=== PATIENT | male | born 1960 | race Caucasian/White ===

== ENCOUNTER → 2017-12-26 | Outpatient (CLI) | payer SELFPAY ==
--- NOTE | 2017-12-26 22:21 | CTL ---
EXAMINATION TYPE: CT Low Dose Lung DATE OF EXAM ORDERED: 12/26/2017 HISTORY: 57-year-old male personal history of tobacco use. Lung cancer screening CT DLP: [address] CTDI: 3.33 mGy Automated exposure control for dose reduction was used. SCREENING VISIT: Baseline COMPARISON: None TECHNIQUE: Low dose computed tomography scan was performed through the chest at 1 mm thick sections and reconstructed images in the coronal/sagittal plane at 1 mm thick sections. Coronal MIP reconstructions performed. CT DIAGNOSTIC QUALITY: Satisfactory FINDINGS: There is rounded prominence to the left lobe of the thyroid gland, possibly underlying thyroid nodule measuring up to 2.2 cm. This can be further evaluated with dedicated thyroid ultrasound. Heart is normal size without pericardial effusion. The aorta is normal-caliber convention arch vessel branching anatomy. Scattered nonenlarged mediastinal lymph nodes are present measuring up to 8 mm in the AP window and 9 mm precarinal region. Punctate calcification is present in the precarinal lymph node possibly relating to prior granulomatous disease. No thoracic lymphadenopathy identified by noncontrast technique. There is mild diffuse bronchial wall thickening and mild emphysematous change. - Tiny 2 mm pulmonary nodule right upper lobe axial image 79. - Additional tiny 2 mm pulmonary nodule peripherally in the right upper lobe, for example, axial images 95, 97, 101, 105, 142, 144, 145, and etc. - These are too numerous to count and are present bilaterally. - 4 mm lateral right midlung pulmonary nodule axial image 167. No consolidation or pleural effusion. Visualized upper abdomen shows no gross abnormality. Bones: No osseous destructive process. IMPRESSION: 1. LungRADS 2 (benign appearance, <1% chance of malignancy) - a 4 mm right midlung pulmonary nodule and too numerous to count tiny 2 mm pulmonary nodules bilaterally. Possibly related to prior granulomatous disease. 2. COPD with mild emphysema. 3. Rounded prominence to the left lobe of the thyroid gland, possible 2.2 cm nodule. RECOMMENDATION: 1. Continue with annual lung cancer screening low dose CT. 2. Smoking cessation. 3. Thyroid ultrasound. FOLLOW UP CT CHEST RECOMMENDATION: [address] LUNG RAD: Lung-Rad 2 Benign Appearance or Behavior MTDD
== END | disposition home or self-care (01) ==
LOC: RADCTMAIN 17:50
PROVIDERS: ATTEND Internal Medicine Critical Care Medicine
DX: Z12.2 Encounter for screening for malignant neoplasm of respiratory organs (principal); R91.8 Other nonspecific abnormal finding of lung field; J44.9 Chronic obstructive pulmonary disease, unspecified; Z87.891 Personal history of nicotine dependence

== ENCOUNTER → 2018-02-20 | Outpatient (CLI) | payer SELFPAY ==
--- NOTE | 2018-02-21 08:39 | US ---
EXAMINATION TYPE: US thyroid st tissue head/neck DATE OF EXAM: 02/20/2018 COMPARISON: CT 12/26/2017 CLINICAL HISTORY: E04.1 THYROID NODULE. GLAND SIZE: Right Lobe: 4.9 x 2.5 x 1.8 cm Overall Parenchyma: homogenous Left Lobe: 4.9 x 1.9 x 2.2 cm Overall Parenchyma: homogeneous Isthmus Thickness: 0.3 cm NODULES RIGHT: # of nodules measured on right: 1 1.3 X 0.8 x 1.2 cm hypoechoic mixed nodule at the mid pole with well-defined margins; . This nodule is wider than tall and shows peripheral vascularity. Prior size: No previous LEFT: # of nodules measured on left: 1. 1.8 X 1.8 x 2.4 cm hypoechoic mixed nodule at the lower pole with well-defined margins; . This nodule is wider than tall and shows intranodular vascularity. Prior size: No previous ISTHMUS: # of nodules measured in the isthmus: 0 Bilateral neck scanned, no evidence of lymphadenopathy. IMPRESSION: Bilateral thyroid nodules greater than 1 cm. Consider correlation with nuclear medicine thyroid scan. Biopsy could be considered.
== END | disposition home or self-care (01) ==
LOC: RADUSWWP 15:54
PROVIDERS: ATTEND Internal Medicine Critical Care Medicine
DX: E04.2 Nontoxic multinodular goiter (principal)
CPT/HCPCS: 76536

== ENCOUNTER 2018-05-17 11:45 | Day surgery (SDC) | payer BC ==
[2018-05-17 12:38] VITALS: RESP 16; TEMP 97.7
[2018-05-17 13:23] VITALS: BP 131/85; PULSE 68
--- NOTE | 2018-05-17 13:38 | US ---
ULTRASOUND GUIDED FNA THYROID BIOPSY: CLINICAL HISTORY: 1.3 cm right thyroid nodule and 2.4 cm left thyroid nodule FINDINGS: The procedure was explained to the patient. The risks, complications, benefits and alternatives were discussed and any questions were answered. Informed consent was obtained. Patient was placed supin e on the ultrasound table and prepped and draped in the usual sterile fashion. Utilizing a 25 gauge needle, five passes were made into the right and left thyroid nodule requested. Patient was stable throughout the procedure. Pathology is pending. All elements of maximal barrier technique were utilized. IMPRESSION: 1. Successful ultrasound guided FNA thyroid biopsy.
== END 2018-05-17 13:45 | disposition home or self-care (01) ==
LOC: RADPROMAIN 11:45
PROVIDERS: ATTEND Family Medicine
DX: E04.1 Nontoxic single thyroid nodule (principal)
CPT/HCPCS: 10022; 76942; 88173; 88305

== ENCOUNTER → 2019-02-19 | Outpatient (CLI) | payer SELFPAY ==
--- NOTE | 2019-02-21 08:15 | CTL ---
EXAMINATION TYPE: CT Low Dose Lung DATE OF EXAM ORDERED: 02/19/2019 COMPARISON: HISTORY: . Low Dose CT Lung Screening CT DLP: 140.[address] CTDI: 3.9 mGy IV CONTRAST USED: None. SCREENING VISIT: First visit COMPARISON: None. TECHNIQUE: Low dose computed tomography scan was performed through the chest at 1 millimeter thick se ctions and reconstructed images in the coronal plane at [address] DIAGNOSTIC QUALITY: Satisfactory FINDINGS: LUNG NODULES: Right lun mm pulmonary nodule right lower lobe adjacent to the fissure image 150. N odule is stable. All scattered 2 mm nodules identified bilaterally but all remain stable as well LUNGS: COPD: Severity: There is mild diffuse bronchial wall thickening and mild emphysematous change. Lymph nodes: None Other findings: None RIGHT PLEURAL SPACE: Effusion: None Calcification: None Thickening: None Pneumothorax: None LEFT PLEURAL SPACE: Effusion: None Calcification: None Thickening: None Pneumothorax: None HEART: Heart Size: Mildly enlarged Coronary calcification: Mild Pericardial effusion: None OTHER FINDINGS: Upper abdomen: No significant abnormality Bony thorax: Degenerative changes Supraclavicular region: No significant abnormalityOther: No significant abnormalityI IMPRESSION: 1. Stable less scattered benign nodules with a less than 1% chance of malignancy. 2. COPD. FOLLOW UP CT CHEST RECOMMENDATION: Follow-up screening in one year. Smoking cessation recommended. CT LUNG RAD: LUNG RAD CATEGORY 2 B9
== END | disposition home or self-care (01) ==
LOC: RADCTMAIN 15:30
PROVIDERS: ATTEND Internal Medicine Critical Care Medicine
DX: J44.9 Chronic obstructive pulmonary disease, unspecified (principal); R91.8 Other nonspecific abnormal finding of lung field; Z87.891 Personal history of nicotine dependence

== ENCOUNTER → 2020-06-09 | Day surgery (SDC) | payer BC ==
[2020-06-04 16:01] VITALS: BMI 28.0
[~2020-06-09] MED LIST: LACTATED RINGERS 1,000 ML IV SCH; LIDOCAINE 1% (10MG/ML) FOR IV START INTRADERMA ONE; PROPOFOL 10 MG/ML 20 ML VIAL IV ONE
[2020-06-09 08:19] VITALS: TEMP 96.7
[2020-06-09 08:30] LABS: Glucose,Whole Blood 116 mg/dL (75-99)
--- NOTE | 2020-06-09 09:23 | P.PCN ---
Date of Procedure: 06/09/20 Procedure(s) Performed: BRIEF HISTORY: Patient is a 59-year-old pleasant white male scheduled for an elective colonoscopy as a part of screening for colorectal neoplasia. PROCEDURE PERFORMED: Colonoscopy with snare polypectomy. PREOPERATIVE DIAGNOSIS: Screening for colon cancer. IV sedation per Anesthesia. PROCEDURE: After informed consent was obtained, the patient, was brought into the endoscopy unit. IV sedation was administered by Anesthesia under continuous monitoring. Digital rectal examination was normal. Initially the Olympus CF-160 flexible video colonoscope was then inserted in the rectum, gradually advanced into the cecum without any difficulty. Careful examination was performed as the scope was gradually being withdrawn. Ileocecal valve and the appendiceal orifice were visualized and appeared normal. Prep was excellent. Mucosa of the cecum, ascending colon, transverse colon, descending colon, sigmoid colon, and rectum appeared normal. In the mid rectum there was a 1 cm polyp that was removed by snare polypectomy. Retroflexion was performed in the rectum and no lesions were seen. The patient tolerated the procedure well. IMPRESSION: 1 cm mid rectal polyp status post polypectomy Rest of the colon appeared normal RECOMMENDATIONS: Findings of this examination were discussed with the patient as well as his family. He was advised to follow with the biopsy results. If the biopsy reveals adenoma he can have a repeat colonoscopy in 3-5.
[2020-06-09 09:40] VITALS: BP 141/83; PULSE 66; RESP 18
== END ==
LOC: ORWHC2ENDO 08:07
PROVIDERS: ATTEND Internal Medicine Gastroenterology
DX: Z12.11 Encounter for screening for malignant neoplasm of colon (principal); D12.8 Benign neoplasm of rectum
CPT/HCPCS: 88305; 45385; J2704

== ENCOUNTER 2021-02-27 13:05 | Observation (INO) | payer BC ==
--- NOTE | 2021-02-27 13:34 | ED ---
General Adult HPI - General Chief complaint: Eye Problems Stated complaint: Double vision Time Seen by Provider: 02/27/21 13:20 Source: patient, RN notes reviewed Mode of arrival: wheelchair Limitations: no limitations - History of Present Illness Initial comments: Patient is a pleasant 60-year-old male presenting to the emergency Department with complaints of double vision. Patient had minimal nonspecific blurred vision Sunday. Patient woke up yesterday with double vision that has been persistent since this time. Double vision is only present when patient uses both eyes. This resolves when using only one eye. Patient states there is minimal discomfort behind his left eye. No confusion or speech problems. No extremity weakness. No history of similar symptoms previously. - Related Data Home Medications Medication Instructions Recorded Confirmed No Known Home Medications 05/08/18 02/27/21 Allergies Allergy/AdvReac Type Severity Reaction Status Date / Time No Known Allergies Allergy Verified 02/27/21 14:53 Review of Systems ROS Statement: Those systems with pertinent positive or pertinent negative responses have been documented in the HPI. ROS Other: All systems not noted in ROS Statement are negative. Constitutional: Denies: fever Eyes: Reports: as per HPI, vision change. Denies: eye pain ENT: Denies: ear pain Respiratory: Denies: cough Cardiovascular: Denies: palpitations Endocrine: Denies: fatigue Gastrointestinal: Denies: abdominal pain Genitourinary: Denies: dysuria Musculoskeletal: Denies: back pain Skin: Denies: rash Neurological: Reports: as per HPI. Denies: weakness, numbness, paresthesias, co nfusion, abnormal gait, vertigo Past Medical History Past Medical History: Thyroid Disorder History of Any Multi-Drug Resistant Organisms: None Reported Past Surgical History: Orthopedic Surgery Past Anesthesia/Blood Transfusion Reactions: No Reported Reaction Past Psychological History: No Psychological Hx Reported Smoking Status: Former smoker Past Alcohol Use History: Occasional Past Drug Use History: None Reported - Past Family History Father History Unknown: Yes Family Medical History: Cancer General Exam Limitations: no limitations General appearance: alert, in no apparent distress Head exam: Present: normocephalic, other (No tenderness of the temporal artery) Eye exam: Present: normal appearance, PERRL, EOMI, nystagmus Expanded Eyelids: Normal Inspection: Bilateral Pupils: Regular, Round: Bilateral Sclera/Conjunctival: Normal Inspection: Bilateral Posterior chamber: Normal Inspection: Bilateral ENT exam: Present: normal oropharynx Neck exam: Present: normal inspection Respiratory exam: Present: normal lung sounds bilaterally Cardiovascular Exam: Present: regular rate, normal rhythm GI/Abdominal exam: Present: soft. Absent: tenderness Extremities exam: Present: normal inspection Neurological exam: Present: alert, oriented X3, CN II-XII intact. Absent: motor sensory deficit Expanded Neurological exam: Present: protecting the airway Patient oriented to: Present: person, place, time Speech: Present: fluid speech Cranial nerves: EOM's Intact: Normal, Facial Sensation: Normal Sensory exam: Upper Extremity Light Touch: Normal, Lower Extremity Light Touch: Normal Motor strength exam: RUE: 5, LUE: 5, RLE: 5, LLE: 5 Eye Response: (4) open spontaneously Motor Response: (6) obeys commands Verbal Response: (5) oriented Psychiatric exam: Present: normal affect, normal mood Skin exam: Present: normal color Course Vital Signs 02/27/21 02/27/21 02/27/21 13:14 13:53 15:00 Temperature 98 F Pulse Rate 79 79 78 Respiratory 17 16 16 Rate Blood Pressure 148/85 148/86 152/83 O2 Sat by Pulse 99 98 98 Oximetry EKG Findings - EKG Comments: EKG Findings:: Normal sinus rhythm with a rate of 74. W[place] 148. QRS 92. QT 32. QTC 424. Normal axis. Normal QRS. No acute ST change. Medical Decision Making - Medical Decision Making Patient reevaluated and unchanged. Symptoms felt to likely be more related to mild CVA rather than ophthalmology. Nevertheless discussed case with Dr. Fuller who will consult in the hospital. Case also discussed with Dr. Rodrigues, who will admit her brain for Dr. Clayton. Neurology will also be consulted. - Lab Data Result diagrams: 02/27/21 13:43 02/27/21 13:43 Lab Results 02/27/21 02/27/21 02/27/21 Range/Units 13:43 13:43 13:43 WBC 4.7 (3.8-10.6) k/uL RBC 5.21 (4.30-5.90) m/uL Hgb 15.8 (13.0-17.5) gm/dL Hct 44.0 (39.0-53.0) % MCV 84.5 (80.0-100.0) fL MCH 30.4 (25.0-35.0) pg MCHC 35.9 (31.0-37.0) g/dL RDW 12.9 (11.5-15.5) % Plt Count 167 (150-450) k/uL MPV 9.0 Neutrophils % 72 % Lymphocytes % 19 % Monocytes % 6 % Eosinophils % 1 % Basophils % 1 % Neutrophils # 3.4 (1.3-7.7) k/uL Lymphocytes # 0.9 L (1.0-4.8) k/uL Monocytes # 0.3 (0-1.0) k/uL Eosinophils # 0.0 (0-0.7) k/uL Basophils # 0.0 (0-0.2) k/uL ESR 2 (0-15) mm/hr PT 10.3 (9.0-12.0) sec INR 1.0 (<1.2) APTT 24.4 (22.0-30.0) sec Sodium 139 (137-145) mmol/L Potassium 3.9 (3.5-5.1) mmol/L Chloride 106 (98-107) mmol/L Carbon Dioxide 25 (22-30) mmol/L Anion Gap 8 mmol/L BUN 14 (9-20) mg/dL Creatinine 0.90 (0.66-1.25) mg/dL Est GFR (CKD-EPI)AfAm >90 (>60 ml/min/1.73 sqM) Est GFR (CKD-EPI)NonAf >90 (>60 ml/min/1.73 sqM) Glucose 125 H (74-99) mg/dL Calcium 9.7 (8.4-10.2) mg/dL Total Bilirubin 0.7 (0.2-1.3) mg/dL AST 25 (17-59) U/L ALT 17 (4-49) U/L Alkaline Phosphatase 66 (38-126) U/L Total Protein 7.1 (6.3-8.2) g/dL Albumin 4.5 (3.5-5.0) g/dL - Radiology Data Radiology results: report reviewed (Computed tomography scan of the brain as well as CTA does not reveal acute abnormality.) Disposition Clinical Impression: Diplopia Disposition: ADMITTED IP TO THIS HOSP Is patient prescribed a controlled substance at d/c from ED?: No Referrals: Trevon Clayton MD [Primary Care Provider] - 1-2 days Decision Time: 15:41
[2021-02-27 14:00] LABS: Basophils % (A) 1 %; Eosinophils % (A) 1 %; HGB 15.8 gm/dL (13.0-17.5); Lymphocytes # (A) 0.9 k/uL (1.0-4.8); Lymphocytes % (A) 19 %; MCH 30.4 pg (25.0-35.0); MCHC 35.9 g/dL (31.0-37.0); MCV 84.5 fL (80.0-100.0); Monocytes # (A) 0.3 k/uL (0-1.0); Monocytes % (A) 6 %; Neutrophils # (A) 3.4 k/uL (1.3-7.7); Neutrophils % (A) 72 %; Platelet Count 167 k/uL (150-450); RBC 5.21 m/uL (4.30-5.90); RDW 12.9 % (11.5-15.5); WBC 4.7 k/uL (3.8-10.6)
[2021-02-27 14:12] LABS: ALT 17 U/L (4-49); AST 25 U/L (17-59); African American GFR (CKD) >90 (>60 ml/min/1.73 sqM); Albumin 4.5 g/dL (3.5-5.0); Alkaline Phosphatase 66 U/L (38-126); Anion Gap 8 mmol/L; Blood Urea Nitrogen 14 mg/dL (9-20); Calcium 9.7 mg/dL (8.4-10.2); Carbon Dioxide 25 mmol/L (22-30); Chloride 106 mmol/L (98-107); Glucose 125 mg/dL (74-99); Non-African American GFR(CKD) >90 (>60 ml/min/1.73 sqM); Potassium 3.9 mmol/L (3.5-5.1); Sodium 139 mmol/L (137-145); Total Bilirubin 0.7 mg/dL (0.2-1.3); Total Protein 7.1 g/dL (6.3-8.2)
--- NOTE | 2021-02-27 14:12 | XR ---
EXAMINATION TYPE: XR chest 2V DATE OF EXAM: 02/27/2021 COMPARISON: NONE HISTORY: Altered mental status. TECHNIQUE: 2 views FINDINGS: There is no heart failure nor confluent pneumonic infiltrate. Costophrenic angles are clear . There are no hilar masses. Bony thorax is intact. Pulmonary vascularity is normal. There are chest leads. Heart size is normal. IMPRESSION: No active cardiopulmonary disease. Normal heart.
[2021-02-27 14:15] LABS: Partial Thromboplastin Time 24.4 sec (22.0-30.0); Prothrombin Time 10.3 sec (9.0-12.0)
--- NOTE | 2021-02-27 14:52 | CT ---
EXAMINATION TYPE: CT brain wo con DATE OF EXAM: 02/27/2021 COMPARISON: None HISTORY: blurry vision CT DLP: 1038 mGycm Automated exposure control for dose reduction was used. Ventricles have normal size. There is no mass effect nor midline shift. There is no sign of intracran ial hemorrhage. Calvarium is intact. Skull base is intact. There is normal aeration of the mastoid si nuses. IMPRESSION: Negative unenhanced head CT scan.
--- NOTE | 2021-02-27 15:01 | CT ---
EXAMINATION TYPE: CT angio head neck DATE OF EXAM: 02/27/2021 COMPARISON: None HISTORY: blurry vision CT DLP: 623.9 mGycm Automated exposure control for dose reduction was used. CONTRAST: Performed with IV Contrast, patient injected with 65 mL of Isovue 370. Images obtained from the aortic arch to the vertex of the brain with IV contrast. There are 3-D post processed images. There is normal branching pattern of the great vessels on the aortic arch. There is bilateral arteria l flow in the subclavian arteries. There is arterial flow in the common internal and external carotid arteries bilaterally. There is wide patency of the carotid artery bifurcations. There is arterial fl ow in both vertebral arteries. There is no evidence of carotid or vertebral artery aneurysm or dissec tion. There is arterial flow in the vertebrobasilar artery system. There is arterial flow in the anterior middle and posterior cerebral arteries. There is no mass effec t. I see no evidence of intracranial aneurysm or neovascularity. There is normal enhancement of the v enous sinuses. I see no intracranial arterial stenosis. IMPRESSION: Negative CT angiogram of the neck. Negative CT angiogram of the brain.
[2021-02-27 15:19] LABS: Erythrocyte Sedimentation Rate 2 mm/hr (0-15)
[2021-02-27] MEDS ORDERED: ASPIRIN 325 MG TAB PO STA (15:42)
[2021-02-27] MEDS ORDERED: NALOXONE 0.4 MG/ML 1 ML VIAL IV PRN (16:33)
[2021-02-27] MEDS ORDERED: ACETAMINOPHEN TAB 325 MG TAB PO PRN (16:33)
--- NOTE | 2021-02-27 17:14 | P.HPIM ---
History of Present Illness H&P Date: 02/27/21 Chief Complaint: diplopia 60-year-old man with no significant medical history presented with double vision. Patient says that his double vision started yesterday with sudden onset. Since that time he's had no resolution of symptoms. He said a couple days before the onset of his double vision and he had headaches as well as feeling of eye soreness in his left eye, and presently continues to feel little bit of soreness with eye-movement of the left eye. He denies photophobia. He denies fevers, chills, nausea, vomiting, chest pain, dyspnea, cough, palpitations, syncope, presyncope, weakness of the upper or lower extremities, numbness of extremities, dysuria, dyschezia, diarrhea, consultation, abdominal pain. Patient is afebrile, 144/75, heart rate 69, 98% on room air. Lab work is largely normal except for mildly elevated glucose at 125. Review of Systems All Systems reviewed and pertinent positives and negatives noted in HPI, all other symptoms are negative Past Medical History Past Medical History: Thyroid Disorder History of Any Multi-Drug Resistant Organisms: None Reported Past Surgical History: Orthopedic Surgery Past Anesthesia/Blood Transfusion Reactions: No Reported Reaction Past Psychological History: No Psychological Hx Reported Smoking Status: Former smoker Past Alcohol Use History: Occasional Additional Past Alcohol Use History / Comment(s): quit smoking years 25 yrs ago Past Drug Use History: None Reported - Past Family History Father History Unknown: Yes Family Medical History: Cancer Medications and Allergies Home Medications Medication Instructions Recorded Confirmed Type No Known Home Medications 05/08/18 02/27/21 History Allergies Allergy/AdvReac Type Severity Reaction Status Date / Time No Known Allergies Allergy Verified 02/27/21 14:53 Physical Exam Osteopathic Statement: *. No significant issues noted on an osteopathic structural exam other than those noted in the History and Physical/Consult. Vitals: Vital Signs Temp Pulse Pulse Resp BP BP Pulse Ox 02/27/21 17:01 98 02/27/21 16:45 98.3 F 69 17 144/75 98 02/27/21 15:00 78 16 152/83 98 02/27/21 13:53 79 16 148/86 98 02/27/21 13:14 98 F 79 17 148/85 99 Intake and Output 02/27/21 02/27/21 02/27/21 06:59 14:59 22:59 Other: Weight 95.254 kg 95.254 kg Gen: awake, alert HEENT: normocephalic, atraumatic, good hearing acuity, moist mucous membranes Resp: good air exchange, breathing comfortably with no accessory muscle use CVS: good distal perfusion x 4, GI: soft, NTTP, ND : no SPT, no CVAT, estrella catheter not present MSK: no pitting edema, no clubbing Neuro: No motor weakness, no sensory weakness, cranial nerves II through XII are intact Psych: cooperative, euthymic mood Results CBC & Chem 7: 02/27/21 13:43 02/27/21 13:43 Labs: Abnormal Lab Results - Last 24 Hours (Table) 02/27/21 02/27/21 Range/Units 13:43 13:43 Lymphocytes # 0.9 L (1.0-4.8) k/uL Glucose 125 H (74-99) mg/dL Thrombosis Risk Factor Assmnt - Choose All That Apply Any of the Below Risk Factors Present?: No Assessment and Plan Assessment: Diplopia -Admit to observation, telemetry -MRI of the brain with and without contrast to rule out stroke as well as multiple sclerosis -Neurology consult -Ophthalmology consult -Aspirin daily -Statin -A1c, lipid panel, TSH -Echo -Carotid Doppler Overweight -Diet and exercise counseling -Outpatient follow-up with PCP Patient is a full code DVT prophylaxis is early ambulation
--- NOTE | 2021-02-27 17:25 | US ---
EXAMINATION TYPE: US carotid duplex BILAT DATE OF EXAM: 02/27/2021 COMPARISON: CTA head/neck 02/27/2021 CLINICAL HISTORY: CVA. EXAM MEASUREMENTS: RIGHT: Peak Systolic Velocity (PSV) cm/sec ----- Right CCA: 125.0 ----- Right ICA: 104.0 ----- Right ECA: 121.0 ICA/CCA ratio: 0.83 RIGHT: End Diastole cm/sec ----- Right CCA: 25.3 ----- Right ICA: 20.8 ----- Right ECA: 14.3 LEFT: Peak Systolic Velocity (PSV) cm/sec ----- Left CCA: 114.0 ----- Left ICA: 92.2 ----- Left ECA: 83.8 ICA/CCA ratio: 0.81 LEFT: End Diastole cm/sec ----- Left CCA: 22.7 ----- Left ICA: 29.2 ----- Left ECA: 7.8 VERTEBRALS (direction of flow): Right Vertebral: Antegrade Left Vertebral: Antegrade Rhythm: Normal No significant stenosis seen. IMPRESSION: There is antegrade flow in the vertebral arteries. The images and measurements suggest close to 0% st enosis in both internal carotid artery. NASCET criteria was used in interpretation of this exam? Criteria for Assigning % of Stenosis / Diameter reduction (Estimation based on the indirect measurements of the internal carotid artery velocities (ICA PSV). 1. Normal (no stenosis)=ICA PSV < 125 cm/s: ratio < 2.0: ICA EDV<40 cm/s. 2. Less than 50% stenosis=ICA PSV < 125 cm/s: ratio < 2.0: ICA EDV<40 cm/s. 3. 50 to 69% stenosis=ICA PSV of 125 to 230 cm/s: ration 2.0 ? 4.0: ICA EDV 40-100 cm/s. 4. Greater than 70% stenosis to near occlusion= ICA PSV > 230 cm/s: ratio > 4.0: ICA EDV > 100 cm/s. 5. Near occlusion= ICA PSV velocities may be low or undetectable: variable ratio and ICA EDV. 6. Total occlusion=unable to detect flow.
[2021-02-27] MEDS: SODIUM CHLORIDE 0.9% 1,000 ML IV SCH (17:41)
[2021-02-27] MEDS: ATORVASTATIN 40 MG TAB PO SCH (20:15)
[2021-02-27 20:25] LABS: Glucose,Whole Blood 143 mg/dL (75-99)
[2021-02-28] MEDS: SODIUM CHLORIDE 0.9% 1,000 ML IV SCH ×3 (02:06→21:32)
[2021-02-28 07:32] LABS: Glucose,Whole Blood 118 mg/dL (75-99)
[2021-02-28] MEDS: ASPIRIN 81 MG PO SCH (07:42)
[2021-02-28] MEDS ORDERED: ASPIRIN 325 MG TAB PO SCH (09:00)
--- NOTE | 2021-02-28 11:35 | P.CNNES ---
History of Present Illness Consult date: 02/28/21 Requesting physician: Juan Daniel Barton Reason for Consult: diplopia, concern for CVA History of Present Illness: This is a 60-year-old gentleman who presented to our emergency department on 02/27/2021 for diplopia that started the day prior to presentation and was sudden in onset. The patient stated he had diplopia of both eyes and he feels it is side to side and it started Sunday upon waking-up around 6am. Last normal was Sunday around 9:30pm. He denies any blurry vision associate with that. He denies any drooping of his eyes. He said that the for last 5 days prior to diplopia he was having mild the pressure behind his eyes intermittently but denied any photophobia, phonophobia, nausea or vomiting. He denies any ringing in the ears or hearing loss. He denies any weakness, numbness, difficulty getting his words out or swallowing. He denies any trauma to the head that. Denies any fever recently. Denies any recent travels. Currently he does not have any headache. He denies any history of stroke or TIA or multiple sclerosis in the past. He said that on 02/16/2021 and he received a second dose of Pfizer. He is not on any home scheduled medication. He has a remote history of tobacco use and stopped 20 years ago and he thinks he smoked pack a day for 15 years. He socially drinks alcohol. He denies any illicit drug use. There is no family history of multiple sclerosis. Some of the workup in the hospital consisted of: Initial vital signs: Blood pressure of 148/85, heart rate is 79, respiratory of 17, temperature of 98 the oral and pulse ox of 99% room air. CBC with differential seems unremarkable. Initial chemistry panel is glucose of 125 which is slightly elevated but not remarkable otherwise the rest of chemistry panel is unremarkable. Initial coagulation study are normal. CT of the head is reported as negative unenhanced head CT scan. CT angiography of the head and neck was reported as negative. Carotid duplex is reported as there is antegrade flow in the vertebral arteries. Images and measurements suggest close to 0% stenosis in both internal carotid arteries. EKG is reported as normal sinus rhythm. Normal EKG. Review of Systems Review of system: The 12 point system was reviewed and apparent positive and negative per HPI. Past Medical History Past Medical History: Thyroid Disorder History of Any Multi-Drug Resistant Organisms: None Reported Past Surgical History: Orthopedic Surgery Past Anesthesia/Blood Transfusion Reactions: No Reported Reaction Past Psychological History: No Psychological Hx Reported Smoking Status: Former smoker Past Alcohol Use History: Occasional Additional Past Alcohol Use History / Comment(s): quit smoking years 25 yrs ago Past Drug Use History: None Reported - Past Family History Father History Unknown: Yes Family Medical History: Cancer Medications and Allergies Home Medications Medication Instructions Recorded Confirmed Type No Known Home Medications 05/08/18 02/27/21 History Allergies Allergy/AdvReac Type Severity Reaction Status Date / Time No Known Allergies Allergy Verified 02/27/21 14:53 Physical Examination - Vital Signs Vital Signs: Vital Signs Temp Pulse Pulse Resp BP BP BP 02/28/21 07:00 98.3 F 65 18 166/85 02/28/21 06:44 98.3 F 65 18 166/85 02/28/21 01:33 98 F 67 18 109/68 02/27/21 20:00 98.5 F 64 18 143/80 02/27/21 17:01 02/27/21 16:45 98.3 F 69 17 144/75 02/27/21 15:00 78 16 152/83 02/27/21 13:53 79 16 148/86 02/27/21 13:14 98 F 79 17 148/85 Pulse Ox 02/28/21 07:00 98 02/28/21 06:44 02/28/21 01:33 97 02/27/21 20:00 98 02/27/21 17:01 98 02/27/21 16:45 98 02/27/21 15:00 98 02/27/21 13:53 98 02/27/21 13:14 99 Intake and Output 02/27/21 02/28/21 02/28/21 22:59 06:59 14:59 Other: Voiding Method Toilet Toilet # Voids 1 2 Weight 95.254 kg GENERAL: The patient is lying in bed and is not in acute distress. CHEST: The heart rate is regular rate rhythm. No murmurs to auscultation. No carotid bruit bilaterally. LUNG: Clear to auscultation bilaterally no wheezing noted throughout. Not labored breathing. ABDOMEN/GI: Bowel sounds present in all 4 quadrants. No tenderness to palpation throughout. NEUROLOGICAL: Higher mental function: The patient is awake, alert, oriented to self, place and time. Patient is following commands. No aphasia and no neglect. Cranial nerves: Has diplopia of both eyes and resolves with closing either eyes (lateral gaze diplopia). The pupils are round, equal and reactive to light and accommodation. Visual chan are full to confrontation throughout. Visual acuity is 20/20 OU with correction. Extraocular movement, I feel there is extreme minimal to subtle movement looking to lateral gaze on left eye (lateral gaze) and patient has multiple episode of squinting left eye. There is no nystagmus noted. No ptosis of both eyes noted even after 1 minute of upward gaze deviation. Facial sensation is normal to touch throughout. The facial strength is normal throughout. Hearing is normal bilaterally to hand rub. Tongue is midline and moved [id number] without any difficulty. No dysarthria is noted. Shoulder shrug is normal bilaterally. Motor: The strength is 5 over 5 throughout. Normal tone and bulk. Cerebellum: Normal finger to nose heel to do bilaterally. Sensation: Sensation is normal to touch throughout. Reflexes (right/left): 2+ throughout. Plantars are downgoing bilaterally. Results - Laboratory Findings CBC and BMP: 02/28/21 05:14 02/28/21 05:14 Abnormal Lab Findings: Abnormal Labs 02/27/21 02/27/21 02/27/21 13:43 13:43 20:23 Lymphocytes # 0.9 L Glucose 125 H POC Glucose (mg/dL) 143 H 02/28/21 07:30 Lymphocytes # Glucose POC Glucose (mg/dL) 118 H Assessment and Plan Assessment: * Diplopia of both eyes (lateral gaze and resolved with closing either eyes). On examination there is subtle limitation on left lateral gaze (left lateral rectus, CN 6 without nystagmus. Without any other neurological deficits. I doubt stroke. Rule out multiple sclerosis. * Remote tobacco use Plan: In the ED the patient was given aspirin 325 mg once then was started on aspirin 81 mg as well as Lipitor 40 mg daily at bedtime for secondary stroke prophylaxis. MRI the brain with and without is ordered by the primary team is pending. 2-D echo, TSH, lipid panel and hemoglobin A1c is ordered by the primary team and are pending PT, OT and MILK DELIVERER are consulted. Placed the patient on every 4 hours checks On cardiac monitoring. Ophthamology team is consulted. Will defer the rest of medical management to the primary team. The plan is discussed with the patient and his nurse. Thank you for the consultation. Marc Steele MD Neuro-Hospitalist. Time with Patient: Greater than 30
[2021-02-28 12:07] LABS: Glucose,Whole Blood 133 mg/dL (75-99)
--- NOTE | 2021-02-28 12:26 | P.PN ---
Subjective Progress Note Date: 02/28/21 No new complaints today. Ongoing symptoms of diplopia. Carotid doppler negative. Neurology following, optho pending. MRI pending. Objective - Vital Signs Vital signs: Vital Signs Temp 98.3 F 02/28/21 07:00 Pulse 65 02/28/21 07:00 Resp 18 02/28/21 07:00 BP 166/85 02/28/21 07:00 Pulse Ox 96 02/28/21 11:01 Intake & Output 02/27/21 02/28/21 02/28/21 18:59 06:59 18:59 Weight 95.254 kg Other: Voiding Method Toilet # Voids 2 - Exam Gen: awake, alert HEENT: normocephalic, atraumatic, good hearing acuity, moist mucous membranes Resp: good air exchange, breathing comfortably with no accessory muscle use CVS: good distal perfusion x 4, GI: soft, NTTP, ND : no SPT, no CVAT, estrella catheter not present MSK: no pitting edema, no clubbing Neuro: No motor weakness, no sensory weakness, cranial nerves II through XII are intact Psych: cooperative, euthymic mood - Labs CBC & Chem 7: 02/27/21 13:43 02/27/21 13:43 Labs: Abnormal Lab Results - Last 24 Hours (Table) 02/27/21 02/27/21 02/27/21 Range/Units 13:43 13:43 20:23 Lymphocytes # 0.9 L (1.0-4.8) k/uL Glucose 125 H (74-99) mg/dL POC Glucose (mg/dL) 143 H (75-99) mg/dL 02/28/21 02/28/21 Range/Units 07:30 11:59 Lymphocytes # (1.0-4.8) k/uL Glucose (74-99) mg/dL POC Glucose (mg/dL) 118 H 133 H (75-99) mg/dL Assessment and Plan Assessment: Diplopia - MS versus diabetic ophthalmoplegia -Admit to observation, telemetry -MRI of the brain with and without contrast to rule out stroke as well as multip le sclerosis -Neurology consult -Ophthalmology consult -Aspirin daily -Statin -A1c, -lipid panel, TSH -Echo pending -Carotid Doppler negative for stenosis Overweight -Diet and exercise counseling -Outpatient follow-up with PCP Patient is a full code DVT prophylaxis is early ambulation
--- NOTE | 2021-02-28 14:19 | MR ---
EXAMINATION TYPE: MR brain wo/w con DATE OF EXAM: 02/28/2021 COMPARISON: CT brain from yesterday. HISTORY: CVA; acute onset neurologic deficit or blurry vision yesterday. TECHNIQUE: Multiplanar, multisequence images of the brain and brainstem is performed without and with IV contras t, utilizing 10 mL intravenous Gadavist . FINDINGS: Diffusion weighted images demonstrate no evidence of a recent infarct or other diffusion ab normality. There is no extra-axial fluid collection or significant white matter signal abnormality. The ventricular system and cisternal spaces are normal in size and appearance. The brain volume is age appropriate. Midline structures demonstrate normal morphology. The craniocervical junction appears within normal limits. Post contrast images demonstrate no abnormal enhancement. The dural venous sinuses appear pa tent. The visualized sinuses are clear and the globes are intact. IMPRESSION: No MRI evidence for recent infarct. Unremarkable study.
[2021-02-28 14:27] LABS: Basophils # (A) 0.02 X 10*3/uL (0.00-0.10); Basophils % (A) 0.4 %; Eosinophils # (A) 0.06 X 10*3/uL (0.04-0.35); Eosinophils % (A) 1.2 %; HCT 44.3 % (39.6-50.0); HGB 14.8 g/dL (13.0-17.0); Lymphocytes # (A) 1.58 X 10*3/uL (0.90-5.00); Lymphocytes % (A) 32.2 %; MCH 28.7 pg (27.0-32.0); MCHC 33.4 g/dL (32.0-37.0); Mean Platelet Volume 12.4 fL (9.5-12.2); Monocytes # (A) 0.46 X 10*3/uL (0.20-1.00); Monocytes % (A) 9.4 %; Neutrophils # (A) 2.75 X 10*3/uL (1.80-7.70); Neutrophils % (A) 56.2 %; Platelet Count 188 X 10*3/uL (140-440); RBC 5.15 X 10*6/uL (4.40-5.60); RDW 12.9 % (11.5-14.5)
[2021-02-28 15:44] LABS: Hemoglobin A1C 5.7 % (4.0-6.0)
[2021-02-28 16:27] LABS: African American GFR (CKD) 108.7 (60.0-200.0); Anion Gap 4.8 mmol/L (4.00-12.00); BUN/Creat Ratio 12.22 Ratio (12.00-20.00); Calcium 8.8 mg/dL (8.7-10.3); Carbon Dioxide 25.2 mmol/L (21.6-31.8); Chol/HDL Ratio 3.9; LDL Cholesterol,Calculated 97.2 mg/dL (0.0-131.0); Magnesium 1.9 mg/dL (1.5-2.4); Non-African American GFR(CKD) 93.8 (60.0-200.0); Potassium 4.3 mmol/L (3.5-5.5); VLDL Calculation 15.8 mg/dL (5.00-40.00)
[2021-02-28 17:27] LABS: Glucose,Whole Blood 81 mg/dL (75-99)
[2021-02-28 21:04] LABS: Glucose,Whole Blood 110 mg/dL (75-99)
[2021-02-28] MEDS: ATORVASTATIN 40 MG TAB PO SCH (21:31)
--- NOTE | 2021-02-28 22:00 | CONS ---
CONSULTATION CHIEF COMPLAINT: Diplopia. HISTORY OF PRESENT ILLNESS: The patient developed diplopia on Sunday morning. I came to the emergency room on Sunday. He developed headache last Sunday following stress. MEDICAL HISTORY: Reviewed, including diabetes. PAST SURGICAL HISTORY: No ocular surgery performed before. EYE EXAMINATION: Lids normal. Pupils are equal and reactive. Extraocular motility shows limited abduction in the left eye. Diplopia exam shows horizontal diplopia, more on the left gaze. Retina shows no disk swelling. ASSESSMENT: 1. Left sixth nerve palsy. 2. Headache. 3. Horizontal diplopia. PLAN: CT scan reviewed and was normal. MRI not back yet. Assume ischemic changes. I will see the patient in the office in 10 to 15 days. Please arrange to see Dr. Diaz in the office for further testing. MMODL / IJN: [id number] /
[2021-03-01 07:42] LABS: Glucose,Whole Blood 113 mg/dL (75-99)
[2021-03-01] MEDS: ASPIRIN 81 MG PO SCH (08:35)
[2021-03-01] MEDS ORDERED: lisinopriL 10 MG TAB PO STA (10:24)
[2021-03-01] MEDS: SODIUM CHLORIDE 0.9% 1,000 ML IV SCH (12:07)
[2021-03-01 12:20] LABS: Glucose,Whole Blood 96 mg/dL (75-99)
--- NOTE | 2021-03-01 14:00 | P.PN ---
Subjective Progress Note Date: 03/01/21 The patient is seen at bedside and states he is about the same. He continues to have diplopia of both eyes. He feels straining of left eye. Yesterday I spoke with the primary team regarding the getting MRI of the orbit and they stated they'll order it but when I came back today I personally called the primary team and dosing care the patient history and he stated that he was waiting for ophthalmology to evaluate patient. Objective - Vital Signs Vital signs: Vital Signs Temp 97.9 F 03/01/21 08:00 Pulse 58 L 03/01/21 13:06 Resp 12 03/01/21 13:06 BP 135/74 03/01/21 12:54 Pulse Ox 98 03/01/21 02:00 Intake & Output 02/28/21 03/01/21 03/01/21 18:59 06:59 18:59 Intake Total 720 Output Total 450 Balance 270 Intake: Oral 720 Output: Urine 450 Other: Voiding Method Toilet Toilet # Voids 5 2 # Bowel Movements 1 - Exam GENERAL: The patient is lying in bed and is not in acute distress. NEUROLOGICAL: Higher mental function: The patient is awake, alert, oriented to self, place and time. Patient is following commands. No aphasia and no neglect. Cranial nerves: Has diplopia of both eyes and resolves with closing either eyes (lateral gaze diplopia). The pupils are round, equal and reactive to light and accommodation. Visual chan are full to confrontation throughout. Visual acuity is 20/20 OU with correction. Extraocular movement, I feel there is extreme minimal to subtle movement looking to lateral gaze on left eye (lateral gaze) and patient has multiple episode of squinting left eye. There is no nystagmus noted. No ptosis of both eyes noted even after 1 minute of upward gaze deviation. Facial sensation is normal to touch throughout. The facial strength is normal throughout. Hearing is normal bilaterally to hand rub. Tongue is midline and moved [id number] without any difficulty. No dysarthria is noted. Shoulder shrug is normal bilaterally. Motor: The strength is 5 over 5 throughout. Normal tone and bulk. Cerebellum: Normal finger to nose heel to do bilaterally. Sensation: Sensation is normal to touch throughout. Reflexes (right/left): 2+ throughout. Plantars are downgoing bilaterally. WORK-UP: CT of the head is reported as negative unenhanced head CT scan. CT angiography of the head and neck was reported as negative. Carotid duplex is reported as there is antegrade flow in the vertebral arteries. Images and measurements suggest close to 0% stenosis in both internal carotid arteries. EKG is reported as normal sinus rhythm. Normal EKG. MRI the brain with and without is negative. Lipid panel is triglycerides 79, cholesterol 152, LDL of the 97.2, HDL of 39. TSH is 1.140 which is within normal limits. Hemoglobin A1c is 5.7 which is also within normal limits. - Labs CBC & Chem 7: 02/28/21 05:14 02/28/21 05:14 Labs: Abnormal Lab Results - Last 24 Hours (Table) 02/28/21 02/28/21 02/28/21 Range/Units 05:14 05:14 21:03 MPV 12.4 H (9.5-12.2) fL Chloride 113 H (96-109) mmol/L Glucose 114 H (70-110) mg/dL POC Glucose (mg/dL) 110 H (75-99) mg/dL HDL Cholesterol 39.0 L (40.0-60.0) mg/dL 03/01/21 Range/Units 07:24 MPV (9.5-12.2) fL Chloride (96-109) mmol/L Glucose (70-110) mg/dL POC Glucose (mg/dL) 113 H (75-99) mg/dL HDL Cholesterol (40.0-60.0) mg/dL Assessment and Plan Assessment: * Diplopia of both eyes (lateral gaze and resolved with closing either eyes). Seems partial left 6th nerve palsy (without any other neurological deficits). Unsure exact etiology. MRI Brain is negative for stroke or Demylinating disease. * Remote tobacco use Plan: * Currently the patient is on aspirin 81 mg and Lipitor 40 mg daily at bedtime. Initially was started for secondary stroke prophylaxis by the primary team and the MRI of the brain is negative for stroke. From a neurological standpoint the patient does not need to be on the aspirin will defer the statins to the primary team. * Recommend MRI of the orbits with and without. Per the primary team the patient wants to get it as outpatient if his symptoms do not improve. * I ordered Acetylcholine receptor antibody (suspicion of Myasthenia Gravis is low). * Ophthalmology team is consulted. The patient had left sixth nerve palsy. As well as horizontal diplopia. The assumed that patient has ischemic changes and waiting for MRI and for patient to follow-up as outpatient within 10-15 days. * Will defer the rest of medical management to the primary team. * Patient needs to follow-up with an [facility] and Neurologist as outpatient within 1-2 weeks. The plan is discussed with the patient and his primary team. Marc Steele MD Neuro-Hospitalist. Time with Patient: Less than 30
[2021-03-01 14:23] VITALS: BP 127/67; PULSE 69; RESP 18; TEMP 98.4
--- NOTE | 2021-03-01 19:30 | P.DS ---
Providers Date of admission: 02/27/21 15:42 Expected date of discharge: 03/01/21 Attending physician: Jose Rodrigues MD Consults: 02/27/21 15:43 Consult Physician Urgent Consulting Provider: Michelle Forbes Consult Reason/Comments: Diplopia, concern for CVA Do you want consulting provider notified?: Yes Consult Physician Urgent Consulting Provider: Magdaleno Sanchez Consult Reason/Comments: diplopia Do you want consulting provider notified?: Yes Primary care physician: Vivek [place] Course: Discharge Diagnosis: 6 neuro palsy, likely related to hypertension, diplopia Hypertension Hospital Course: Patient is a 60-year-old male for history of thyroid disorder and prior tobacco abuse who presented with acute onset diplopia. Laboratory analysis in the ER showed a slightly elevated glucose at 125 is otherwise unremarkable. Vital signs within normal limits. He was placed in observation for concerns of possible stroke. He was seen by neurology and underwent an extensive workup which was negative for stroke. TSH was within normal limits, hemoglobin A1c, 5.7, and cholesterol profile within normal limits. He was also seen by ophthalmology who felt he could follow in the clinic in 10-15 days. There was concerns that this may be secondary to his high blood pressure his di abetes and stroke were ruled out. They recommended taping of his classes. We have discussion that he should not drive or operate heavy machinery until his diplopia resolved and patient is in agreement. He will obtain a blood pressure cuff for close monitoring of his blood pressures. He was discharged home in stable condition. He was started on lisinopril to optimize blood pressures as his have been fluctuating up to the 170s during the day. He will continue his aspirin and consider outpatient MRI of the orbit if no improvement. acetylcholice receptior AB pending Imaging: Chest x-ray: No acute process CT brain: Negative for acute process CTA of the head: Negative Carotid Dopplers: Images suggest 0% stenosis bilateral MRI brain: No evidence of recent infarct, unremarkable study Patient seen and examined at bedside. Vital signs reviewed and stable. General: non toxic, no distress, appears at stated age Derm: warm, dry Head: atraumatic, normocephalic, symmetric Eyes: EOMI, no lid lag, anicteric sclera Mouth: no lip lesion, mucus membranes moist Cardiovascular: S1S2 reg, no murmur, positive posterior tibial pulse bilateral, Lungs: CTA bilateral, no rhonchi, no rales , no accessory muscle use Ext: no gross muscle atrophy, no edema, no contractures Neuro: Left eye with inward gaze deviation and inability to complete abduction, face symmetrical, speech fluent and clear, moving all 4 extremities independently without restriction Psych: Alert, oriented, appropriate affect A total of 25 minutes of time were spent preparing this complex discharge summary . Plan - Discharge Summary Discharge Rx Participant: Yes New Discharge Prescriptions: New Aspirin 81 mg PO DAILY lisinopriL 10 mg PO DAILY #30 tablet Discharge Medication List Aspirin 81 mg PO DAILY 03/01/21 [Rx] lisinopriL 10 mg PO DAILY #30 tablet 03/01/21 [Rx] Follow up Appointment(s)/Referral(s): Trevon Clayton MD [Primary Care Provider] - 1-2 days Shabana Dolan MD [STAFF PHYSICIAN] - 03/21/21 1:20 pm (Appointment is with Dr. Daniel Dolan ) Patient Instructions/Handouts: Stress (GEN), Acute Headache (GEN), Diplopia (GEN) Activity/Diet/Wound Care/Special Instructions: Activity: as tolerated Diet: heart healthy Special Instructions: check blood pressure once daily on waking No driving or operating have machinery until seen by ophthalmology Discharge Disposition: HOME SELF-CARE
--- NOTE | 2021-03-05 10:00 | ECHOF ---
Referral Reason:CVA MEASUREMENTS -------- HEIGHT: 188.0 cm WEIGHT: 95.3 kg BP: 109/68 RVIDd: 3.5 cm (< 3.3) IVSd: 1.1 cm (0.6 - 1.1) LVIDd: 5.0 cm (3.9 - 5.3) LVPWd: 1.1 cm (0.6 - 1.1) IVSs: 1.6 cm LVIDs: 3.2 cm LVPWs: 1.8 cm LA Diam: 3.7 cm (2.7 - 3.8) LAESV Index (A-L): 26.44 ml/m Ao Diam: 3.2 cm (2.0 - 3.7) AV Cusp: 2.5 cm (1.5 - 2.6) MV EXCURSION: 17.007 mm (> 18.000) MV EF SLOPE: 86 mm/s (70 - 150) EPSS: 0.2 cm MV E Basilio: 0.99 m/s MV DecT: 247 ms MV A Basilio: 0.76 m/s MV E/A Ratio: 1.31 RAP: 5.00 mmHg RVSP: 29.15 mmHg FINDINGS -------- Sinus rhythm. This was a technically good study. The left ventricular size is normal. There is borderline concentric left ventricular hypertrophy. Overall left ventricular systolic function is normal with, an EF between 60 - 65 %. The right ventricle is mildly enlarged. Normal LA size by volume 22+/-6 ml/m2. The right atrium is normal in size. Interatrial and interventricular septum intact. The aortic valve is trileaflet, and appears structurally normal. No aortic stenosis or regurgitation. There is trace mitral regurgitation. Mild tricuspid regurgitation present. Right ventricular systolic pressure is normal at < 35 mmHg. The aortic root size is normal. Normal inferior vena cava with normal inspiratory collapse consistent with estimated right atrial pre ssure of 5 mmHg. There is no pericardial effusion. CONCLUSIONS -------- 1. The left ventricular size is normal. 2. There is borderline concentric left ventricular hypertrophy. 3. Overall left ventricular systolic function is normal with, an EF between 60 - 65 %. 4. The right ventricle is mildly enlarged. 5. The aortic valve is trileaflet, and appears structurally normal. No aortic stenosis or regurgitati on. 6. There is trace mitral regurgitation. 7. Mild tricuspid regurgitation present. 8. There is no pericardial effusion. HORSE GROOMER: Jaylin Mejias RDCS
== END 2021-03-01 14:30 | disposition home or self-care (01) ==
LOC: EC 13:05 → 6NMEDSUR 15:42
PROVIDERS: ADMIT Internal Medicine; ATTEND Internal Medicine
DX: H49.22 Sixth [abducent] nerve palsy, left eye (principal); R51.9 Headache, unspecified; I10 Essential (primary) hypertension; E07.9 Disorder of thyroid, unspecified; Z87.891 Personal history of nicotine dependence; E66.3 Overweight; Z79.82 Long term (current) use of aspirin
CPT/HCPCS: 99285; 96360; 96361 ×3; 36415; 94760; 93005; 93306; 97161; 97165; 83519; 80061; 80053; 80048; 85652; 84443; 83735; 85025 ×2; 85610; 85730; 83036; 71046; 93880; 70496; 70450; 70498; 70553; G0378 ×3; A9585; Q9967

== ENCOUNTER → 2021-03-02 | Outpatient (CLI) | payer SELFPAY ==
--- NOTE | 2021-03-02 15:17 | CTL ---
EXAMINATION TYPE: CT Low Dose Lung DATE OF EXAM ORDERED: 03/02/2021 HISTORY: . Lung cancer screening CT DLP: 123.[address] CTDI: 3.6 mGy Automated exposure control for dose reduction was used. SCREENING VISIT: Subsequent follow-up 3 years from baseline COMPARISON: 02/19/2019, 12/26/2017 TECHNIQUE: Low dose computed tomography scan was performed through the chest at 1 mm thick sections a nd reconstructed images in the coronal plane at [address] DIAGNOSTIC QUALITY: Satisfactory FINDINGS: LUNG NODULES: Present, detailed below: 1. 0.2 cm punctate nodule peripheral right apex. Series 4 image 79. Stable. 2. Additional punctate stable nodularities are in the anterior right upper lobe. 3. Stable calcified granuloma anterior lateral right lung. Series 4 image 12. 4. Peripheral right midlung nodule measuring 0.4 cm. Series 4 image 171, stable. LUNGS: COPD: Severity: Normal Fibrosis: Severity: Normal Lymph nodes: Normal Other findings: Normal RIGHT PLEURAL SPACE: Effusion: Normal Calcification: Normal Thickening: Normal Pneumothorax: Normal LEFT PLEURAL SPACE: Effusion: Normal Calcification: Normal Thickening: Normal Pneumothorax: Normal HEART: Heart Size: Normal Coronary calcification: None Pericardial effusion: None OTHER FINDINGS: Upper abdomen: Normal Bony thorax: Normal Supraclavicular region: Left lobe thyroid is somewhat prominent. This could be evaluated with ultraso und. This appears stable from the comparison. Other: Ascending thoracic aorta at the level the main pulmonary artery measures 3.6 cm. The main pul monary artery at the bifurcation measures 2.6 cm. IMPRESSION: 1. Stable scattered nodules right lung. 2. Stable appearing fullness of the left lobe thyroid FOLLOW UP CT CHEST RECOMMENDATION: Yes, low-dose CT chest [address] LUNG RAD: 2
== END | disposition home or self-care (01) ==
LOC: RADCTMAIN 13:37
PROVIDERS: ATTEND Family Medicine
DX: Z12.2 Encounter for screening for malignant neoplasm of respiratory organs (principal); R91.8 Other nonspecific abnormal finding of lung field
CPT/HCPCS: 71271

== ENCOUNTER → 2023-01-17 | Outpatient (CLI) | payer BC ==
--- NOTE | 2023-01-18 13:54 | CTL ---
EXAMINATION TYPE: CT Low Dose Lung DATE OF EXAM ORDERED: 01/17/2023 HISTORY: Former smoker. Lung cancer screening CT DLP: 96.[address] CTDI: 2.6 mGy Automated exposure control for dose reduction was used. SCREENING VISIT: Subsequent COMPARISON: 03/02/2021 TECHNIQUE: Low dose computed tomography scan was performed through the chest at 1 mm thick sections a nd reconstructed images in the coronal plane at [address] DIAGNOSTIC QUALITY: Satisfactory FINDINGS: LUNG NODULES: None. 1. There is a 0.3 cm peripheral nodule anterior right upper lung field. Series 4 image 94. The contra lateral side there is additional nodule measuring 0.3 cm. 2. There is a peripheral mid right lung stable 0.4 cm nodule. Series 4 image 172. LUNGS: COPD: Severity: None Fibrosis: Severity: None Lymph nodes: None Other findings: None RIGHT PLEURAL SPACE: Effusion: None Calcification: None Thickening: None Pneumothorax: None LEFT PLEURAL SPACE: Effusion: None Calcification: None Thickening: None Pneumothorax: None HEART: Heart Size: Normal Coronary calcification: None Pericardial effusion: None OTHER FINDINGS: Upper abdomen: Normal Bony thorax: Normal Supraclavicular region: Normal Other: Ascending thoracic aorta at the level the main pulmonary artery measures 3.2 cm. The main pul monary artery at the bifurcation measures 2.8 cm. IMPRESSION: 1. Multiple stable punctate nodularities, larger nodules discussed above. Findings appear stable from comparison. FOLLOW UP CT CHEST RECOMMENDATION: Follow-up low-dose CT chest one year CT LUNG RAD: Lung-Rad 2 Benign Appearance or Behavior
== END | disposition home or self-care (01) ==
LOC: RADCTMAIN 15:44
PROVIDERS: ATTEND Family Medicine
DX: Z12.2 Encounter for screening for malignant neoplasm of respiratory organs (principal); F17.210 Nicotine dependence, cigarettes, uncomplicated; R91.8 Other nonspecific abnormal finding of lung field
CPT/HCPCS: 71271

== ENCOUNTER 2023-06-27 07:33 | Day surgery (SDC) | payer BC ==
[2023-06-21 15:33] VITALS: BMI 28.2
[~2023-06-27 07:33] MED LIST changes: -LIDOCAINE 1% (10MG/ML) FOR IV START INTRADERMA ONE; +LIDOCAINE 1% (10MG/ML) FOR IV START INTRADERMA PRN; -PROPOFOL 10 MG/ML 20 ML VIAL IV ONE
[2023-06-27 08:23] VITALS: TEMP 97
[2023-06-27] MEDS ORDERED: PROPOFOL 10 MG/ML 20 ML VIAL IV ONE (08:39)
[2023-06-27] MEDS ORDERED: LIDOCAINE 1% INJ 10MG/ML (20 ML MDV) ONE (08:39)
--- NOTE | 2023-06-27 08:57 | P.PCN ---
Date of Procedure: 06/27/23 Procedure(s) Performed: BRIEF HISTORY: Patient is a 62-year-old pleasant white male scheduled for an elective colonoscopy as a part of evaluation of prior history of colon polyps. Last colonoscopy was 3 years agoscopy. PREOPERATIVE DIAGNOSIS: History of colon polyps. IV sedation per Anesthesia. PROCEDURE: After informed consent was obtained, the patient, was brought into the endoscopy unit. IV sedation was administered by Anesthesia under continuous monitoring. Digital rectal examination was normal. Initially the Olympus CF-160 flexible video colonoscope was then inserted in the rectum, gradually advanced into the cecum without any difficulty. Careful examination was performed as the scope was gradually being withdrawn. Ileocecal valve and the appendiceal orifice were visualized and appeared normal. Prep was excellent. Mucosa of the cecum, ascending colon, transverse colon, descending colon, sigmoid colon, and rectum appeared normal. Retroflexion was performed in the rectum and no lesions were seen. The patient tolerated the procedure well. IMPRESSION: Normal-appearing colon from rectum to cecum with no evidence of colorectal neoplasia . RECOMMENDATIONS: Findings of this examination were discussed with the patient well as his family. He was advised to have a repeat screening colonoscopy in 5 years because of family history of colon cancer.
[2023-06-27 09:40] VITALS: BP 130/81; PULSE 64; RESP 16
== END 2023-06-27 09:44 | disposition home or self-care (01) ==
LOC: ORWHC2ENDO 07:33
PROVIDERS: ATTEND Internal Medicine Gastroenterology
DX: Z12.11 Encounter for screening for malignant neoplasm of colon (principal); I10 Essential (primary) hypertension; E07.9 Disorder of thyroid, unspecified; Z86.010 Personal history of colon polyps; Z79.82 Long term (current) use of aspirin; Z79.899 Other long term (current) drug therapy
CPT/HCPCS: 45378; J2001; J2704

== ENCOUNTER 2024-01-15 07:31 | Emergency (ER) | payer BC ==
[2024-01-15 07:49] VITALS: RESP 18; TEMP 98
--- NOTE | 2024-01-15 08:31 | ED ---
Eye Problem HPI - General Source: patient, RN notes reviewed Mode of arrival: ambulatory Limitations: no limitations <Karena Landin - Last Filed: 01/15/24 08:31> <Junior Ivan - Last Filed: 01/15/24 12:17> - General Chief complaint: Eye Problems Stated complaint: R Eye Problem Time Seen by Provider: 01/15/24 08:25 - History of Present Illness Initial comments: Quick Note: This is a 63-year-old male who presents to the emergency department for problems with his right eye. States that 2 days ago he started to notice floaters in his right eye and this morning he noticed bright flashing. Denies any pain with this. Also denies any difficulty with his vision. 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 At that time states that he had blurry vision, which is not currently the case. No longer taking blood thinners. He does have an appointment with his cheese cutter at [facility] at 5:15 PM today, but is concerned about having another stroke. (Karena Landin) 63-year-old male presenting for evaluation of floaters in the right eye, desc ribes this as a wormlike visual deficit. No curtain sensation. No pain in the eye. Patient states his vision is intact. 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 (Junior Ivan) - Related Data Home Medications Medication Instructions Recorded Confirmed Losartan [Cozaar] 50 mg PO DAILY 06/21/23 06/27/23 Ibuprofen [Advil] 200 mg PO Q6HR PRN 06/26/23 06/27/23 Previous Rx's Medication Instructions Recorded Aspirin 81 mg PO DAILY 03/01/21 Allergies Allergy/AdvReac Type Severity Reaction Status Date / Time No Known Allergies Allergy Verified 01/15/24 07:49 Review of Systems ROS Other: All systems not noted in ROS Statement are negative. <Karena Landin - Last Filed: 01/15/24 08:31> ROS Other: All systems not noted in ROS Statement are negative. <Junior Ivan - Last Filed: 01/15/24 12:17> ROS Statement: Those systems with pertinent positive or pertinent negative responses have been documented in the HPI. Past Medical History Past Medical History: Thyroid Disorder Additional Past Medical History / Comment(s): nodule thyroid just watching it History of Any Multi-Drug Resistant Organisms: None Reported Past Surgical History: Orthopedic Surgery Additional Past Surgical History / Comment(s): carpal tunnel surgery Past Anesthesia/Blood Transfusion Reactions: No Reported Reaction Additional Past Anesthesia/Blood Transfusion Reaction / Comment(s): no blood transfusion Past Psychological History: No Psychological Hx Reported Smoking Status: Former smoker - Past Family History Father History Unknown: Yes Family Medical History: Cancer Additional Family Medical History / Comment(s): brain <Karena Landin - Last Filed: 01/15/24 08:31> General Exam Limitations: no limitations <Karena Landin - Last Filed: 01/15/24 08:31> General appearance: alert, in no apparent distress Eye exam: Present: normal appearance, PERRL, EOMI. Absent: scleral icterus, conjunctival injection ENT exam: Present: normal exam Neck exam: Present: normal inspection. Absent: tenderness, meningismus Respiratory exam: Present: normal lung sounds bilaterally. Absent: respiratory distress, wheezes Cardiovascular Exam: Present: regular rate, normal rhythm GI/Abdominal exam: Present: soft. Absent: distended, tenderness, guarding <Junior Ivan - Last Filed: 01/15/24 12:17> - General Exam Comments Initial Comments: Visual Physical Exam Vital signs reviewed General: Well-appearing, nontoxic, no acute distress. Head: Normocephalic, atraumatic Eyes: PERRLA, EOMI ENT: Airway patent Chest: Nonlabored breathing Skin: No visual rash, normal skin tone Neuro: Alert and oriented 3 Musculoskeletal: No gross abnormalities (Karena Landin) Course <Junior Ivan - Last Filed: 01/15/24 12:17> Vital Signs 01/15/24 07:45 Temperature 98.0 F Pulse Rate 62 Respiratory 18 Rate Blood Pressure 167/76 O2 Sat by Pulse 99 Oximetry - Reevaluation(s) Reevaluation #1: 01/15/24 12:[address] Dolan who is familiar with the patient and can see him in the office today at 4 PM. (Junior Ivan) Medical Decision Making <Karena Landin - Last Filed: 01/15/24 08:31> - Lab Data Result diagrams: 01/15/24 08:21 01/15/24 08:21 <Junior Ivan N - Last Filed: 01/15/24 12:17> - Medical Decision Making I performed the QuickNote portion of this chart. Signed Karena Landin PA-C. (Karena Landin) Was pt. sent in by a medical professional or institution ([facility], [employer], urgent care, hospital, or detention...) When possible be specific @ -No Did you speak to anyone other than the patient for history (EMS, parent, family, police, friend...)? What history was obtained from this source @ -No Did you review nursing and triage notes (agree or disagree)? Why? @ -I reviewed and agree with nursing and triage notes Were old charts reviewed (outside hosp., previous admission, EMS record, old EKG, old radiological studies, urgent care reports/EKG's, detention records)? Report findings @ -No old charts were reviewed Differential CVA Ischemic stroke, hemorrhagic stroke, brain tumor, atypical migraine, Wernicke's encephalopathy, seizure, multiple sclerosis, meningitis, encephalitis, hypoglycemia, Guillain-Vasquez, electrolytes disturbance, myasthenia gravis.... T his is not meant to be an all-inclusive list EKG interpreted by me (3pts min.). @ -As above X-rays interpreted by me (1pt min.). @ -None done CT interpreted by me (1pt min.). @ -CT brain, CT angiography negative for acute process. U/S interpreted by me (1pt. min.). @ -None done What testing was considered but not performed or refused? (CT, X-rays, U/S, labs)? Why? @ -None What meds were considered but not given or refused? Why? @ -None Did you discuss the management of the patient with other professionals (professionals i.e. [facility] Fox, [employer], lab, RT, psych nurse, social media director, hod carrier, teacher, chief credit officer, sample case porter)? Give summary @ -No Was smoking cessation discussed for >3mins.? @ -No Was critical care preformed (if so, how long)? @ -No Were there social determinants of health that impacted care today? How? (Homelessness, low income, unemployed, alcoholism, drug addiction, transportation, low edu. Level, literacy, decrease access to med. care, group home, rehab)? @ -No Was there de-escalation of care discussed even if they declined (Discuss DNR or withdrawal of care, Hospice)? DNR status @ -No What co-morbidities impacted this encounter? (DM, HTN, Smoking, COPD, CAD, Canc er, CVA, ARF, Chemo, Hep., AIDS, mental health diagnosis, sleep apnea, morbid obesity)? @ -[hypertension, previous CVA Was patient admitted / discharged? Hospital course, mention meds given and route , prescriptions, significant lab abnormalities, going to OR and other pertinent info. @ -83-year-old male with flashers and floaters in the right eye. No other complaints. On gross testing of the visual chan there is no vision loss. His pupils are equal and reactive. He has normal extraocular movement. He has no double vision currently. CT brain and CT angiography were ordered in triage and were negative for acute findings. Patient has normal laboratory testing. I did discuss case with Dr. Magdaleno frey for ophthalmology who is familiar with this patient. He can see the patient today for urgent evaluation. Undiagnosed new problem with uncertain prognosis? @ -[No Drug Therapy requiring intensive monitoring for toxicity (Heparin, Nitro, Insulin, Cardizem)? @ -No Were any procedures done? @ -No Diagnosis/symptom? @ -Flashers and floaters in the right eye Acute, or Chronic, or Acute on Chronic? @ -Acute Uncomplicated (without systemic symptoms) or Complicated (systemic symptoms)? @ -Default Side effects of treatment? @ -No Exacerbation, Progression, or Severe Exacerbation? @ -No Poses a threat to life or bodily function? How? (Chest pain, USA, MS, pneumonia, PE, COPD, DKA, ARF, appy, cholecystitis, CVA, Diverticulitis, Homicidal, Suicidal, threat to staff... and all critical care pts) @ -No (Junior Ivan) - Lab Data Lab Results 01/15/24 01/15/24 01/15/24 Range/Units 08:21 08:21 08:21 WBC 4.2 (3.8-10.6) k/uL RBC 5.24 (4.30-5.90) m/uL Hgb 15.1 (13.0-17.5) gm/dL Hct 46.0 (39.0-53.0) % MCV 88.0 (80.0-100.0) fL MCH 28.9 (25.0-35.0) pg MCHC 32.9 (31.0-37.0) g/dL RDW 13.3 (11.5-15.5) % Plt Count 167 (150-450) k/uL MPV 9.2 Neutrophils % 59 % Lymphocytes % 29 % Monocytes % 7 % Eosinophils % 2 % Basophils % 1 % Neutrophils # 2.5 (1.3-7.7) k/uL Lymphocytes # 1.2 (1.0-4.8) k/uL Monocytes # 0.3 (0-1.0) k/uL Eosinophils # 0.1 (0-0.7) k/uL Basophils # 0.0 (0-0.2) k/uL PT 10.6 (10.0-12.5) sec INR 1.0 (<1.2) APTT 26.5 (22.0-30.0) sec Sodium 138 (137-145) mmol/L Potassium 4.0 (3.5-5.1) mmol/L Chloride 108 H (98-107) mmol/L Carbon Dioxide 25 (22-30) mmol/L Anion Gap 5 mmol/L BUN 18 (9-20) mg/dL Creatinine 0.91 (0.66-1.25) mg/dL Est GFR (CKD-EPI)AfAm >90 (>60 ml/min/1.73 sqM) Est GFR (CKD-EPI)NonAf >90 (>60 ml/min/1.73 sqM) Glucose 128 H (74-99) mg/dL Calcium 9.5 (8.4-10.2) mg/dL Total Bilirubin 1.4 H (0.2-1.3) mg/dL AST 21 (17-59) U/L ALT 15 (4-49) U/L Alkaline Phosphatase 52 (38-126) U/L Total Protein 7.0 (6.3-8.2) g/dL Albumin 4.4 (3.5-5.0) g/dL Disposition <Karena Landin - Last Filed: 01/15/24 08:31> Is patient prescribed a controlled substance at d/c from ED?: No Time of Disposition: 12:16 <Junior Ivan - Last Filed: 01/15/24 12:17> Clinical Impression: Floaters in visual field Disposition: HOME SELF-CARE Condition: Good Instructions (If sedation given, give patient instructions): Visual Floaters (ED) Additional Instructions: Please go to Dr. Dolan's office at 4 PM for evaluation. Referrals: Trevon Clayton MD [Primary Care Provider] - 1-2 days Shabana Dolan MD [STAFF PHYSICIAN] - 1-2 days
[2024-01-15 08:43] LABS: Basophils % (A) 1 %; Eosinophils # (A) 0.1 k/uL (0-0.7); Eosinophils % (A) 2 %; HGB 15.1 gm/dL (13.0-17.5); Lymphocytes # (A) 1.2 k/uL (1.0-4.8); Lymphocytes % (A) 29 %; MCH 28.9 pg (25.0-35.0); MCHC 32.9 g/dL (31.0-37.0); Mean Platelet Volume 9.2; Monocytes # (A) 0.3 k/uL (0-1.0); Monocytes % (A) 7 %; Neutrophils # (A) 2.5 k/uL (1.3-7.7); Neutrophils % (A) 59 %; Platelet Count 167 k/uL (150-450); RBC 5.24 m/uL (4.30-5.90); RDW 13.3 % (11.5-15.5); WBC 4.2 k/uL (3.8-10.6)
[2024-01-15 08:53] LABS: ALT 15 U/L (4-49); AST 21 U/L (17-59); African American GFR (CKD) >90 (>60 ml/min/1.73 sqM); Albumin 4.4 g/dL (3.5-5.0); Alkaline Phosphatase 52 U/L (38-126); Anion Gap 5 mmol/L; Blood Urea Nitrogen 18 mg/dL (9-20); Calcium 9.5 mg/dL (8.4-10.2); Carbon Dioxide 25 mmol/L (22-30); Chloride 108 mmol/L (98-107); Glucose 128 mg/dL (74-99); Non-African American GFR(CKD) >90 (>60 ml/min/1.73 sqM); Sodium 138 mmol/L (137-145); Total Bilirubin 1.4 mg/dL (0.2-1.3)
[2024-01-15 08:57] LABS: Partial Thromboplastin Time 26.5 sec (22.0-30.0); Prothrombin Time 10.6 sec (10.0-12.5)
--- NOTE | 2024-01-15 09:06 | CT ---
EXAMINATION TYPE: CT brain wo con DATE OF EXAM: 01/15/2024 COMPARISON: 02/27/2021 INDICATION: Vision changes RT eye. Previous stroke behind LT eye. DLP: 1231.6 mGycm, Automated exposure control for dose reduction was used. CONTRAST: None CT of the brain is performed utilizing 3 mm thick sections through the posterior fossa and 3 mm thick sections through the remaining calvarium. Study is performed within 24 hours of arrival to the hosp ital. No abnormal hyperdensity is present to suggest an acute intracranial hemorrhage. No mass lesion is evident. No acute infarcts are evident. Subtle. Ventricular white matter hypodensity is present, likely invasi ve chronic white matter ischemic change. Ventricles and sulci are appropriate for the patient age. Paranasal sinuses and mastoid air cells within the [id number] are clear. IMPRESSION: 1. Minimal chronic appearing periventricular white matter ischemic changes stable. 2. No acute intracranial process. Follow-up MRI can be performed as clinically indicated.
--- NOTE | 2024-01-15 10:23 | CT ---
EXAMINATION TYPE: CT angio head neck DATE OF EXAM: 01/15/2024 HISTORY: Vision changes RT eye. Previous stroke behind LT eye. COMPARISON: CT DLP: 603.1 mGycm. Automated Exposure Control for Dose Reduction was Utilized. TECHNIQUE: CTA scan of the neck is performed with IV Contrast, patient injected with 65 mL of Isovue 370, axial images are obtained, coronal and sagittal reformatted images are reviewed. Three-D recons tructed images are created on an independent workstation and reviewed. Source images are reviewed. FINDINGS: Carotid/Vascular Structures: There is a common origin of the left common carotid artery right subclav sena artery from the innominate. Common carotid arteries bifurcate into internal and external carotid arteries without significant deuce w limiting stenosis. Vertebral arteries are codominant. Internal carotid arteries and vertebral arteries are patent to the skull base. Cervical of [place]: Vertebral basilar system appears normal. Posterior cerebral vasculature is unrema rkable. Internal carotid arteries bifurcate normally into A1 and M1 segments. A2 segments are normal. The anterior communicating artery is patent. Posterior communicating arteries are not clearly identified. IMPRESSION: 1. No flow-limiting stenosis bilateral carotid bifurcations. 2. Normal [place] NASCET criteria was used in interpretation of this exam?
[2024-01-15 12:38] VITALS: BP 142/86; PULSE 82
== END 2024-01-15 12:38 | disposition home or self-care (01) ==
LOC: EC 07:31
DX: H43.391 Other vitreous opacities, right eye (principal); I10 Essential (primary) hypertension; Z86.73 Personal history of transient ischemic attack (TIA), and cerebral infarction without residual deficits; Z87.891 Personal history of nicotine dependence
CPT/HCPCS: 99283 ×2; 36415; 80053; 85025; 85610; 85730; 70496; 70450; 70498; Q9967